=== PATIENT | female | born 1990 | race Caucasian/White ===

== ENCOUNTER 2016-09-27 12:37 | Outpatient (CLI) | payer OTHER | END 2016-09-27 12:38 | disposition home or self-care (01) | DX: M62.81 Muscle weakness (generalized) (principal) ==

== ENCOUNTER 2017-01-02 20:46 | Emergency (ER) | payer OTHER ==
[2017-01-02] MEDS ORDERED: FLUCONAZOLE 100 MG TABLET PO STA (21:08)
[2017-01-02] MEDS ORDERED: FLUCONAZOLE 100 MG TABLET ONE (21:09)
== END 2017-01-02 21:21 | disposition home or self-care (01) ==
DX: R21 Rash and other nonspecific skin eruption (principal); R23.8 Other skin changes; F17.200 Nicotine dependence, unspecified, uncomplicated
CPT/HCPCS: 86694; 86695; 86696; 99283; A9270

== ENCOUNTER 2017-01-27 05:09 | Emergency (ER) | payer OTHER ==
[2017-01-27 05:15] VITALS: BP 151/91
[2017-01-27] MEDS ORDERED: IBUPROFEN 600 MG TABLET PO STA (05:18)
[2017-01-27] MEDS ORDERED: AMOX/CLAV 875 MG/125 MG TABLET PO STA (05:18)
[2017-01-27] MEDS ORDERED: AMOX/CLAV 875 MG/125 MG TABLET PO ONE (05:20)
[2017-01-27] MEDS ORDERED: IBUPROFEN 600 MG TABLET PO ONE (05:21)
--- NOTE | 2017-01-27 05:21 | ED Physician Documentation ---
PD HPI HEENT - Stated complaint Stated Complaint: R EAR PX - Chief complaint Chief Complaint: Heent - History obtained from History obtained from: Patient - History of Present Illness Timing - onset: Yesterday Timing - details: Gradual onset, Still present Location: Right ear, Left ear Associated symptoms: No: Fever, Unable to swallow, Facial swelling Similar symptoms before: Work up / diagnostics, Treatment Recently seen: Not recently seen - Additional information Additional information: Patient is a 23 year old female presenting to the emergency department for ear pain. Patient states that it started yesterday in her left ear and today she woke up with worsening pain in her right ear. Patient states that she has had multiple ear infections as a child. She reports and allergy to amoxicillin but states that she has taken augmentin without any problem. Review of Systems Constitutional: denies: Fever, Chills Eyes: denies: Loss of vision, Decreased vision Ears: reports: Loss of hearing, Ear pain. 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 - Past Surgical 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 Past Surgical History: Yes HEENT: Tonsil/Adenoidectomy - Present Medications Home Medications: Ambulatory Orders Medication Instructions Recorded Confirmed Amox/Clav 875/125 [Augmentin] 1 each PO Q12H #14 tablet 01/27/17 Fluconazole [Diflucan] 150 mg PO ONCE #1 tablet 01/27/17 - Allergies Allergies/Adverse Reactions: Allergies Allergy/AdvReac Type Severity Reaction Status Date / Time amoxicillin Allergy Unknown Verified 01/27/17 05:12 miconazole nitrate * AdvReac Edema Verified 01/27/17 05:12 [From Monistat 3] skin cleanser combination AdvReac Edema Verified 01/27/17 05:12 no.17 * [From Monistat 3] "vaginal cream" AdvReac Edema Uncoded 01/27/17 05:12 - Social History Does the pt smoke?: Yes Smoking Status: Current every day smoker Does the pt drink ETOH?: No Does the pt have substance abuse?: No - Immunizations Immunizations are current?: Yes - POLST Patient has POLST: No PD ED PE NORMAL - General General: Alert and oriented X 3, Well developed/nourished - HEENT HEENT: Atraumatic, PERRL, Moist mucous membranes, Pharynx benign - Neck Neck: Supple, no meningeal sign - Cardiac Cardiac: RRR, No murmur - Respiratory Respiratory: No respiratory distress, Clear bilaterally - Abdomen Abdomen: Soft, Non distended - Derm Derm: Normal color, Warm and dry, No rash - Extremities Extremities: No deformity, Normal ROM s pain - Neuro Neuro: No motor deficit, No sensory deficit, Normal speech - Psych Psych: Normal mood, Normal affect PD ED PE EXPANDED - General General: Alert, In Pain - HEENT HEENT: R TM red, R TM retracted, R TM loss of landmarks, L TM red, L TM retracted, L TM loss of landmarks Results - Vitals Vitals: Vital Signs - 24 hr 01/27/17 05:13 Temperature 36.0 C L Heart Rate 82 Respiratory 18 Rate Blood Pressure 151/91 H O2 Saturation 98 Oxygen O2 Source Room air PD MEDICAL DECISION MAKING - ED course Complexity details: reviewed old records, re-evaluated patient, considered differential, d/w patient ED course: Patient was seen and examined at bedside. Patient's findings were consistent with otitis media. patient was treated with ibuprofen and augmentin. (patient had taken in the past without reaction). Patient required no further work up at this time and was stable for discharge with outpatient follow up. Departure - Departure Disposition: 01 Home, Self Care Clinical Impression: Otitis media Condition: Good Instructions: ED Otitis Media Acute Adult Follow-Up: primary,care provider [Other] Prescriptions: Amox/Clav 875/125 [Augmentin] 1 each PO Q12H #14 tablet Fluconazole [Diflucan] 150 mg PO ONCE #1 tablet Comments: Your symptoms today are being caused by an ear infection. You had your first dose of antbiotics today and you will need to take it for the next week. You can take motrin or tylenol as needed. FDA removed the prior ear drops since they were never fda approved but you might be able to find over the counter ear drops. You should follow up with your pmd if your symptoms don't improve over the next few days. You can return to the emergency department at any time for new, worsening or uncontrollable symptoms. Forms: Activity restrictions
== END 2017-01-27 05:38 | disposition home or self-care (01) ==
LOC: ED 05:09
DX: H66.93 Otitis media, unspecified, bilateral (principal); F17.200 Nicotine dependence, unspecified, uncomplicated
CPT/HCPCS: 99283; A9270

== ENCOUNTER → 2017-03-11 | Outpatient (CLI) | payer OTHER | LOC: LAB.R 09:03 | PROVIDERS: ATTEND Nurse Practitioner Obstetrics & Gynecology | DX: B37.3 Candidiasis of vulva and vagina (principal) | CPT/HCPCS: 87480; 87510; 87660 ==

== ENCOUNTER 2017-09-19 08:00 | Outpatient (CLI) | payer OTHER | END 2017-09-19 08:01 | disposition home or self-care (01) | LOC: LAB.R 08:00 | PROVIDERS: ATTEND Nurse Practitioner Obstetrics & Gynecology | DX: N76.0 Acute vaginitis (principal) | CPT/HCPCS: 87480; 87510; 87660 ==

== ENCOUNTER 2017-12-31 20:21 | Emergency (ER) | payer OTHER ==
[2017-12-31 20:25] VITALS: BP 132/77
[2017-12-31 20:40] LABS: BILIRUBIN,URINE NEGATIVE (NEGATIVE); GLUCOSE, URINE (UA) NEGATIVE (NEGATIVE); KETONES,URINE (UA) NEGATIVE (NEGATIVE); LEUKOCYTE ESTERASE, URINE LARGE (NEGATIVE); NITRITE,URINE NEGATIVE (NEGATIVE); OCCULT BLOOD,URINE TRACE-INTA (NEGATIVE); PROTEIN,URINE NEGATIVE (NEGATIVE); UROBILINOGEN,URINE 0.2 (NORMAL) E.U./dL (NORMAL)
[2017-12-31 20:41] LABS: CLARITY,URINE HAZY (CLEAR)
[2017-12-31] MEDS ORDERED: SULFAMETH/TRIMETH DS 800/160 MG TABLET PO STA (20:42)
[2017-12-31] MEDS ORDERED: PHENAZOPYRIDINE 100 MG TABLET PO STA (20:42)
[2017-12-31 20:43] LABS: HCG UR QUAL NEGATIVE
--- NOTE | 2017-12-31 20:45 | ED Physician Documentation ---
PD HPI FEMALE - Stated complaint Stated Complaint: PELVIC PAIN - Chief complaint Chief Complaint: Abd Pain - History obtained from History obtained from: Patient - History of Present Illness Timing - onset: How many days ago (4) Timing - details: Gradual onset, Still present Associated symptoms: Pelvic pain, Dysuria, Urinary frequency Similar symptoms before: Work up / diagnostics, Treatment Recently seen: Not recently seen - Additional information Additional information: Patient is a 27 year old female with no significant past medical history who is presenting to the emergency department for dysuria, and pelvic pain. patient states that it has been going on for the last couple of days. Review of Systems Ten Systems: 10 systems reviewed and negative Constitutional: denies: Fever, Chills GI: reports: Abdominal Pain : reports: Dysuria, Frequency. 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 - Past Surgical History Past Surgical History: Yes HEENT: Tonsil/Adenoidectomy - Present Medications Home Medications: Ambulatory Orders Medication Instructions Recorded Confirmed Amox/Clav 875/125 [Augmentin] 1 each PO Q12H #14 tablet 01/27/17 Fluconazole [Diflucan] 150 mg PO ONCE #1 tablet 01/27/17 Fluconazole [Diflucan] 150 mg PO ONCE #1 tablet 12/31/17 Phenazopyridine HCl [Pyridium] 200 mg PO TID PRN #6 tablet 12/31/17 Sulfamethox/Trimeth 800/160 1 each PO BID #10 tablet 12/31/17 [Bactrim Ds 800/160] - Allergies Allergies/Adverse Reactions: Allergies Allergy/AdvReac Type Severity Reaction Status Date / Time amoxicillin Allergy Unknown Verified 12/31/17 20:25 miconazole nitrate * AdvReac Edema Verified 12/31/17 20:25 [From Monistat 3] skin cleanser combination AdvReac Edema Verified 12/31/17 20:25 no.17 * [From Monistat 3] "vaginal cream" AdvReac Edema Uncoded 12/31/17 20:25 - Social History Does the pt smoke?: Yes Smoking Status: Current every day smoker Does the pt drink ETOH?: No Does the pt have substance abuse?: No - Immunizations Immunizations are current?: Yes - POLST Patient has POLST: No PD ED PE NORMAL - Vitals Vital signs reviewed: Yes - General General: Alert and oriented X 3, No acute distress - HEENT HEENT: Atraumatic - Cardiac Cardiac: RRR - Respiratory Respiratory: No respiratory distress - Derm Derm: Normal color, No rash - Extremities Extremities: No deformity - Neuro Neuro: Alert and oriented X 3 - Psych Psych: Normal mood Results - Vitals Vitals: Vital Signs - 24 hr 12/31/17 20:23 Temperature 36.0 C L Heart Rate 102 H Respiratory 16 Rate Blood Pressure 132/77 H O2 Saturation 100 Oxygen O2 Source Room air - Labs Labs: Laboratory Tests 12/31/17 12/31/17 20:35 20:35 Urine Color LT. YELLOW Urine Clarity HAZY Urine pH 7.0 Ur Specific [place] 1.010 1.010 Urine Protein NEGATIVE Urine Glucose (UA) NEGATIVE Urine Ketones NEGATIVE Urine Occult Blood TRACE-INTA Urine Nitrite NEGATIVE Urine Bilirubin NEGATIVE Urine Urobilinogen 0.2 (NORMAL) Ur Leukocyte Esterase LARGE H Urine RBC 6-10 H Urine WBC >25 H Ur Squamous Epith Cells MANY Squamous H Urine Bacteria Few Ur Microscopic Review INDICATED Urine Culture Comments NOT INDICATED Urine HCG, Qual NEGATIVE PD MEDICAL DECISION MAKING - ED course Complexity details: reviewed old records, reviewed results, re-evaluated patient , considered differential, d/w patient ED course: Patient was seen and examined at bedside. Patient's urine was collected and was consistent with a urinary tract infection. patient was treated with pyridium and bactrim. patient required no further work up and was stable for discharge with outpatient follow up. Departure - Departure Disposition: 01 Home, Self Care Clinical Impression: Urinary tract infection Condition: Good Instructions: ED UTI Cystitis Female Follow-Up: primary,care provider [Other] - Within 3 Days Prescriptions: Fluconazole [Diflucan] 150 mg PO ONCE #1 tablet Phenazopyridine HCl [Pyridium] 200 mg PO TID PRN #6 tablet PRN Reason: dysuria Sulfamethox/Trimeth 800/160 [Bactrim Ds 800/160] 1 each PO BID #10 tablet Comments: Your symptoms today are being caused by a urinary tract infection. You had your first dose of antibiotics today and will need to be on them for the next 5 days. You should stay well hydrated. You can take the pyridium, motrin or tylenol as needed for pain. YOu should follow up with your doctor if your symptoms don't improve. You may return to the emergency department at anytime for new, worsening or uncontrollable symptoms. Discharge Date/Time: 12/31/17 20:52
[2017-12-31 20:56] LABS: BACTERIA,URINE Few /HPF (None Seen); SQUAMOUS EPITHELIAL CELL,UR MANY Squamous (<= Few)
== END 2017-12-31 20:52 | disposition home or self-care (01) ==
LOC: ED 20:21
DX: N39.0 Urinary tract infection, site not specified (principal); F17.200 Nicotine dependence, unspecified, uncomplicated
CPT/HCPCS: 81001; 81025; 99283; A9270; 81003; 87086

== ENCOUNTER 2018-01-08 21:24 | Emergency (ER) | payer OTHER ==
[2018-01-08] MEDS ORDERED: diphenhydrAMINE INJ 50 MG/ML VIAL IVP STA (22:19)
[2018-01-08] MEDS ORDERED: DEXAMETHASONE 10 MG/ML VIAL IVP STA (22:19)
[2018-01-08 23:15] LABS: BILIRUBIN,URINE NEGATIVE (NEGATIVE); GLUCOSE, URINE (UA) NEGATIVE (NEGATIVE); KETONES,URINE (UA) NEGATIVE (NEGATIVE); LEUKOCYTE ESTERASE, URINE NEGATIVE (NEGATIVE); NITRITE,URINE NEGATIVE (NEGATIVE); OCCULT BLOOD,URINE NEGATIVE (NEGATIVE); PROTEIN,URINE NEGATIVE (NEGATIVE); UROBILINOGEN,URINE 0.2 (NORMAL) E.U./dL (NORMAL)
[2018-01-08 23:23] LABS: CLARITY,URINE CLEAR (CLEAR)
--- NOTE | 2018-01-09 01:16 | ED Physician Documentation ---
PD HPI HEENT - Stated complaint Stated Complaint: THROAT SWOLLEN - Chief complaint Chief Complaint: Heent - History obtained from History obtained from: Patient - History of Present Illness Timing - onset: How many hours ago (Onset less than one hour prior to arrival.) Timing - details: Gradual onset Location: Throat Worsens: Swalllowing Associated symptoms: Other (itching). No: Fever Similar symptoms before: No diagnosis (Similar symptoms in the past after taking antibiotics.) Recently seen: Emergency Dept (She was seen here one week ago and prescribed Bactrim for UTI.) - Additional information Additional information: The patient is a 27-year-old female who presents with thickness in her throat that started less than 1 hour prior to arrival. She finds it hard to swallow. She denies cough or shortness of breath. She has also experienced itching. She reports history of similar symptoms twice in the past, after taking antibiotics. One week ago she was diagnosed with urinary tract infection and was prescribed Bactrim DS. She took her last antibiotic pill this morning. She denies fever, headache, nausea or vomiting. 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 - Past Surgical History Past Surgical History: Yes HEENT: Tonsil/Adenoidectomy - Present Medications Home Medications: Ambulatory Orders Medication Instructions Recorded Confirmed Amox/Clav 875/125 [Augmentin] 1 each PO Q12H #14 tablet 01/27/17 Fluconazole [Diflucan] 150 mg PO ONCE #1 tablet 01/27/17 Fluconazole [Diflucan] 150 mg PO ONCE #1 tablet 12/31/17 Phenazopyridine HCl [Pyridium] 200 mg PO TID PRN #6 tablet 12/31/17 Sulfamethox/Trimeth 800/160 1 each PO BID #10 tablet 12/31/17 [Bactrim Ds 800/160] - Allergies Allergies/Adverse Reactions: Allergies Allergy/AdvReac Type Severity Reaction Status Date / Time amoxicillin Allergy Unknown Verified 01/08/18 21:36 miconazole nitrate * AdvReac Edema Verified 01/08/18 21:36 [From Monistat 3] skin cleanser combination AdvReac Edema Verified 01/08/18 21:36 no.17 * [From Monistat 3] "vaginal cream" AdvReac Edema Uncoded 01/08/18 21:36 - Social History Does the pt smoke?: Yes Smoking Status: Current every day smoker Does the pt drink ETOH?: No Does the pt have substance abuse?: No - Immunizations Immunizations are current?: Yes - POLST Patient has POLST: No PD ED PE NORMAL - Vitals Vital signs reviewed: Yes (Mild systolic hypertension initially.) - General General: Alert and oriented X 3 - HEENT HEENT: Atraumatic, EOMI, Moist mucous membranes, Pharynx benign - Neck Neck: Supple, no meningeal sign, No adenopathy, No JVD - Cardiac Cardiac: RRR, No murmur - Respiratory Respiratory: No respiratory distress, Clear bilaterally - Abdomen Abdomen: Soft, Non tender - Back Back: No CVA TTP - Derm Derm: Other (erythematous rash in glove distribution of both hands.) - Extremities Extremities: No edema, No calf tenderness / cord - Neuro Neuro: Alert and oriented X 3, No motor deficit, No sensory deficit Results - Vitals Vitals: Vital Signs - 24 hr 01/08/18 01/08/18 01/09/18 21:32 22:35 01:27 Temperature 36.0 C L Heart Rate 97 88 85 Respiratory 20 14 18 Rate Blood Pressure 136/75 H 131/86 H 129/72 O2 Saturation 100 100 96 Oxygen O2 Source Room air - Labs Labs: Laboratory Tests 01/08/18 22:05 Urine Color LT. YELLOW Urine Clarity CLEAR Urine pH 6.0 Ur Specific [place] <=1.005 Urine Protein NEGATIVE Urine Glucose (UA) NEGATIVE Urine Ketones NEGATIVE Urine Occult Blood NEGATIVE Urine Nitrite NEGATIVE Urine Bilirubin NEGATIVE Urine Urobilinogen 0.2 (NORMAL) Ur Leukocyte Esterase NEGATIVE Ur Microscopic Review NOT INDICATED Urine Culture Comments NOT INDICATED PD MEDICAL DECISION MAKING - ED course Complexity details: reviewed old records, reviewed results, re-evaluated patient , considered differential, d/w patient ED course: The patient's presentation is most consistent with an allergic reaction to sulfa drug, with symptoms of itching and thickness in her throat. Her clinical presentation does not suggest peritonsillar abscess or epiglottitis. Treatment in the emergency department included administration of Benadryl 50 mg IV and dexamethasone 10 mg IV. She was observed in the emergency department for several hours, and her symptoms gradually improved. Further discussion involving the rash on her hands reveals that she wears latex gloves at work, and may have a reaction to the latex gloves. I discussed with her the diagnosis, symptomatic treatment and outpatient follow- up, as well as potentially worrisome signs or symptoms that should prompt reevaluation in the emergency department. Departure - Departure Disposition: 01 Home, Self Care Clinical Impression: Drug allergy Condition: Stable Instructions: ED Drug React Allergic Follow-Up: [facility] [Provider Group] Comments: Avoid sulfa drugs, such as Bactrim. Take Benadryl, up to 50 mg every 6 hours if needed for recurrent allergic symptoms. Follow up with your primary physician within 1-2 weeks. Call to schedule an appointment. Return to the emergency department if you develop increasing difficulty swallowing, shortness of breath, or otherwise worsening symptoms. Discharge Date/Time: 01/09/18 01:28
[2018-01-09 01:28] VITALS: BP 129/72
== END 2018-01-09 01:28 | disposition home or self-care (01) ==
LOC: ED 21:24
DX: R13.10 Dysphagia, unspecified (principal); L29.9 Pruritus, unspecified; R09.89 Other specified symptoms and signs involving the circulatory and respiratory systems; T37.0X5A Adverse effect of sulfonamides, initial encounter; F17.200 Nicotine dependence, unspecified, uncomplicated; R21 Rash and other nonspecific skin eruption
CPT/HCPCS: 81003; 96374; 96375; 99283; 99284; J1200; 81001; 87086

== ENCOUNTER 2019-05-04 08:00 | Outpatient (CLI) | payer OTHER ==
[2019-05-04 21:36] LABS: CANDIDA GROUP DNA POSITIVE (NEGATIVE); CANDIDA KRUSEI DNA NEGATIVE (NEGATIVE); TRICHOMONAS VAGINALIS DNA NEGATIVE (NEGATIVE)
[2019-05-04 23:10] LABS: TRICHOMONAS VAGINALIS DNA NEGATIVE (NEGATIVE)
== END 2019-05-04 23:59 | disposition home or self-care (01) ==
LOC: LAB.R 08:00
PROVIDERS: ATTEND Obstetrics & Gynecology
DX: Z20.2 Contact with and (suspected) exposure to infections with a predominantly sexual mode of transmission (principal); N76.0 Acute vaginitis
CPT/HCPCS: 81599; 87255; 87491; 87591; 87661; 87801

== ENCOUNTER 2019-12-25 13:33 | Outpatient (CLI) | payer BC ==
[2019-12-25 13:46] LABS: HGB - HEMOGLOBIN 12.4 g/dL (12.0-16.0); MEAN CORPUSCULAR HEMOGLOBIN 31.6 pg (27.0-31.0); MEAN CORPUSCULAR HGB CONC 32.6 g/dL (32.0-36.0); MEAN CORPUSCULAR VOLUME 96.7 fL (81.0-99.0); MEAN PLATELET VOLUME 8.8 fL (7.9-10.8); RED BLOOD COUNT 3.93 10^6/uL (4.20-5.40); RED CELL DISTRIBUTION WIDTH 12.3 % (12.0-15.0); WHITE BLOOD COUNT 6.6 x10^3/uL (4.8-10.8)
== END 2019-12-25 13:34 | disposition home or self-care (01) ==
LOC: LAB 13:33
PROVIDERS: ATTEND Internal Medicine
DX: L65.9 Nonscarring hair loss, unspecified (principal)
CPT/HCPCS: 36415; 84443; 85027

== ENCOUNTER 2020-01-07 08:00 | Outpatient (CLI) | payer BC ==
[2020-01-07 17:53] LABS: BASOPHILS % (AUTO) 0.5 %; EOSINOPHILS # (AUTO) 0.2 10^3/uL (0.0-0.7); LYMPHOCYTES # (AUTO) 2.4 10^3/uL (1.5-3.5); MEAN CORPUSCULAR HEMOGLOBIN 31.6 pg (27.0-31.0); MEAN CORPUSCULAR HGB CONC 32.6 g/dL (32.0-36.0); MEAN CORPUSCULAR VOLUME 97.1 fL (81.0-99.0); MEAN PLATELET VOLUME 9.2 fL (7.9-10.8); MONOCYTES # (AUTO) 0.7 10^3/uL (0.0-1.0); MONOCYTES % (AUTO) 9.8 %; NEUTROPHILS # (AUTO) 4.1 10^3/uL (1.5-6.6); NEUTROPHILS % (AUTO) 55.4 %; PLT - PLATELET COUNT 341 10^3/uL (130-450); RED BLOOD COUNT 4.11 10^6/uL (4.20-5.40); WHITE BLOOD COUNT 7.4 x10^3/uL (4.8-10.8)
[2020-01-07 18:21] LABS: THYROID STIMULATING HORMONE 1.08 uIU/mL (0.34-5.60)
[2020-01-07 18:23] LABS: FREE T3 3.41 pg/mL (2.5-3.9); FREE T4 (FREE THYROXINE) 0.9 ng/dL (0.58-1.64)
[2020-01-07 18:47] LABS: ALBUMIN 4.5 g/dL (3.2-5.5); ALBUMIN/GLOBULIN RATIO 1.7 (1.0-2.2); ALKALINE PHOSPHATASE 70 IU/L (42-121); ALT ALANINE AMINOTRANSFERASE 17 IU/L (10-60); AST ASPARTATE AMINOTRANSFERASE 22 IU/L (10-42); BILIRUBIN,TOTAL 0.5 mg/dL (0.2-1.0); BUN - BLOOD UREA NITROGEN 21 mg/dL (6-20); CALCIUM 8.9 mg/dL (8.5-10.3); CARBON DIOXIDE - CO2 29 mmol/L (21-32); CHLORIDE 103 mmol/L (101-111); CREATININE 0.7 mg/dL (0.4-1.0); GLUCOSE 69 mg/dL (70-100); SODIUM 138 mmol/L (135-145); TOTAL PROTEIN 7.1 g/dL (6.7-8.2)
[2020-01-07 18:59] LABS: CRP - C-REACTIVE PROTEIN < 1.0 mg/dL (0-1.0)
== END 2020-01-07 23:59 | disposition home or self-care (01) ==
LOC: LAB.WCP 08:00
PROVIDERS: ATTEND Family Medicine
DX: L65.9 Nonscarring hair loss, unspecified (principal)
CPT/HCPCS: 36415; 80053; 82306; 84439; 84443; 84481; 85025; 85651; 86140

== ENCOUNTER 2020-03-14 11:30 | Outpatient (CLI) | payer BC ==
[2020-03-14 22:18] LABS: CANDIDA GROUP DNA POSITIVE (NEGATIVE); CANDIDA KRUSEI DNA NEGATIVE (NEGATIVE); TRICHOMONAS VAGINALIS DNA NEGATIVE (NEGATIVE)
[2020-03-14 23:40] LABS: TRICHOMONAS VAGINALIS DNA NEGATIVE (NEGATIVE)
== END 2020-03-14 23:59 | disposition home or self-care (01) ==
LOC: LAB.R 11:30
PROVIDERS: ATTEND Obstetrics & Gynecology
DX: N76.0 Acute vaginitis (principal)
CPT/HCPCS: 87491; 87591; 87661; 87801

== ENCOUNTER 2020-06-18 11:40 | Outpatient (CLI) | payer BC | END 2020-06-18 11:41 | disposition home or self-care (01) | LOC: COV 11:40 | PROVIDERS: ATTEND Family Medicine | DX: R05 Cough (principal); Z20.828 Contact with and (suspected) exposure to other viral communicable diseases; R09.81 Nasal congestion; R53.83 Other fatigue; M79.10 Myalgia, unspecified site; R43.8 Other disturbances of smell and taste ==

== ENCOUNTER 2020-07-15 12:12 | Outpatient (CLI) | payer BC ==
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
== END 2020-07-15 12:13 | disposition home or self-care (01) ==
LOC: SC 12:12
PROVIDERS: ATTEND Internal Medicine Pulmonary Disease
DX: G47.10 Hypersomnia, unspecified (principal); R06.81 Apnea, not elsewhere classified; G47.8 Other sleep disorders; R51.9 Headache, unspecified; R41.89 Other symptoms and signs involving cognitive functions and awareness; G47.21 Circadian rhythm sleep disorder, delayed sleep phase type; R06.83 Snoring; E66.9 Obesity, unspecified; Z68.32 Body mass index [BMI] 32.0-32.9, adult
CPT/HCPCS: 99203; 99212

== ENCOUNTER 2020-09-17 15:58 | Outpatient (CLI) | payer BC | END 2020-09-17 15:59 | disposition home or self-care (01) | LOC: SC 15:58 | PROVIDERS: ATTEND Internal Medicine Pulmonary Disease | DX: G47.10 Hypersomnia, unspecified (principal); E66.01 Morbid (severe) obesity due to excess calories; Z68.32 Body mass index [BMI] 32.0-32.9, adult; R06.81 Apnea, not elsewhere classified; R06.83 Snoring | CPT/HCPCS: 95806 ==

== ENCOUNTER 2020-09-24 12:55 | Outpatient (CLI) | payer BC ==
--- NOTE | 2020-09-24 13:18 | SLEEP CARE CONSULTATION ---
Information from patient questionnaire entered by Ilda Wing. I have reviewed and concur with the information entered by Ilda Wing. This document represents the service I personally performed and the decisions made by , Niesha Henning ARNP. History of Present Illness Service Date and Time: 09/24/2020 1255 Initial [place] Sleepiness Scale score: 23 (in 2019) Current [place] Sleepiness Scale score: 19 Additional HPI information: RICKIE KYLE returns for follow up and results of the recently performed home sleep study. The patient was informed of the following findings: no significant sleep disordered breathing with an average AHI 2.0 and dulce oxygen saturation of 92%. I explained the pathophysiology behind obstructive sleep apnea. Patient does not have sleep apnea and was advised how weight gain could increase the risk of developing sleep apnea in the future. I strongly encouraged the patient to lose weight. Patient has moderate to loud snoring. Snoring can be reduced by weight loss. Weight loss is best achieved with diet consult. Patient instructed to contact PCP for referral. Snoring can also be treated with an oral appliance from a dentist. Advised to check insurance coverage. In addition, an ENT evaluation can be do to see if other treatment is indicated. Patient counseled not drink alcohol less than 4 hours before bedtime as it can increase snoring and apnea. Patient was cautioned about risks of drowsy driving until sleepiness symptoms resolve. Sleep Study - Results Type of Sleep Study: Home sleep study Prior sleep studies: No Polysomnography/Home Sleep Study results: Physician Impression: The quality of the study is good. The length of the study is adequate (> 240 minutes). Please also see the tabulated and graphic data. 1. No significant sleep disordered breathing, with an AHI of 2.0/hr and dulce SaO2 of 92%. During the study, the patient had 8 apneas (8 obstructive, 0 central, 0 mixed) and 2 hypopneas. The longest episode lasted 26.5 seconds. The few respiratory events occurred independently of sleep stage and body position (supine AHI was 2.0 and non-supine, 1.95). Allergies and Home Medications Drug allergies reviewed: Yes (amoxicillin, miconazole, monostat) Home medication list reviewed: Yes (B12) Review of Systems Review of systems same as previous: No (hair falling out) Physical Exam Heart Rate: 94 O2 Saturation: 96 Height: 5 ft 6 in Weight: 202 lb Body Mass Index: 32.5 BMI Classification: Obese Impression and Plan 1. Snoring but no significant sleep disordered breathing. Patient advised that often weight loss will reduce snoring as well as apnea risk. An oral appliance can also be used for snoring. This would require a dental consultation. Patient cautioned not to use other online appliances as can cause bite issues. A list of accredited dentists in area and one local dentist who makes oral appliances given. Patient is advised to check if insurance will cover. An ENT consult can also be helpful to determine if any other treatment is an option. 2. 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 Patient was advised to get up at the same time every morning consistently and can do this in hour increments until at desired wake up time. I explained the homestatic sleep drive and how maintaining a regular wake time will allow the patient to be tired enough to sleep 15-16 hours later. By waking at the same time, the patient will also feel more alert. This can also be assisted by exposure to bright light for a minimum of 15 minutes a day upon waking. Additionally too much time spent in bed can cause more sleep disruption as most people only need 7-9 hours of sleep. Thus patient advised to restrict time in bed to 7-8 hours. Naps are to be avoided unless overcome by sleepiness. Then naps are to be restricted to one hour and before 3 pm so as not to interfere with nighttime sleep. AAS pamphlet Coping with shift work was reviewed and given to patient. She voiced understanding. * Attempt to lose weight * Get up at same time each morning * Avoid alcohol consumption near bedtime * The patient is cautioned about driving until sleepiness is completely resolved. * Return as needed. Counseling Topics: Weight loss health impact Visit Type: In Office Time Spent with Patient (minutes): 20 Provider Statement: I spent 100% of the Face to Face Visit with the patient with greater than 50% spent counseling the patient and coordination of care.
== END 2020-09-24 12:56 | disposition home or self-care (01) ==
LOC: SC 12:55
PROVIDERS: ATTEND Nurse Practitioner Family
DX: R06.83 Snoring (principal); G47.21 Circadian rhythm sleep disorder, delayed sleep phase type; E66.9 Obesity, unspecified; Z68.32 Body mass index [BMI] 32.0-32.9, adult
CPT/HCPCS: 99212; 99213

== ENCOUNTER 2020-11-24 21:17 | Outpatient (CLI) | payer BC ==
--- NOTE | 2020-11-25 11:54 | Ultrasound Report ---
PROCEDURE: OB First Trimester w/TV INDICATIONS: TEST POSITIVE OUTSIDE/PRIOR DATING DATA: Last menstrual period (LMP): 08/12/2020. LMP-based estimated date of delivery (RODERICK): 05/19/2021. First dating scan (date and location): 11/24/2020. Estimated date of delivery (RODERICK) from first dating scan: Not applicable. TECHNIQUE: Real-time scanning was performed of the fetus and maternal pelvic organs, with image documentation. Endovaginal scanning was also performed to better visualize the fetus and maternal ovaries. COMPARISON: None FINDINGS: Embryo: Intrauterine gestational sac is present measuring 3.2 cm corresponding to 8 weeks 3 days. G estational sac is irregular. Cystic appearance is present in the placenta. There is no clearly iden tified pole. A questionable focus of echogenicity is noted within the gestational sac is prese nt, measuring 0.5 cm. No heart tones are present. There is appearance of subchorionic hemorrha ge measuring 3.5 x 2.4 x 2.9 cm. Measurement variability in dating: +/- 4 weeks by LMP, +/- 7 days by mean sac diameter (use before 6 weeks gestation if crown-rump length not able to be measured), +/- 5 days by crown-rump length (6-12 weeks gestation). Maternal organs: Ovaries demonstrate a right ovarian cyst.. IMPRESSION: 1.Intrauterine gestational sac appearing irregular. No definitive pole is identified as describ ed above. While this is suggestive of blighted ovum/failed , recommend correlation to beta h CG levels and short interval imaging follow up if indicated. 2. Cystic appearance of the placenta. It is noted that this can be seen with molar , althoug h placenta in failed pregnancies can also have a similar appearance. Again, recommend correlation to beta hCG levels to exclude presence of molar . Reviewed by: Leona Cornejo MD on 11/25/2020 11:53 AM PDT Approved by: Leona Cornejo MD on 11/25/2020 11:53 AM PDT Station ID: [id number]
== END 2020-11-24 21:18 | disposition home or self-care (01) ==
LOC: DI 21:17
PROVIDERS: ATTEND Nurse Practitioner Obstetrics & Gynecology
DX: Z32.01 Encounter for pregnancy test, result positive (principal)

== ENCOUNTER 2020-11-25 08:00 | Outpatient (CLI) | payer BC | END 2020-11-25 23:59 | disposition home or self-care (01) | LOC: LAB.WCP 08:00 | PROVIDERS: ATTEND Nurse Practitioner Obstetrics & Gynecology | DX: O20.0 Threatened abortion (principal) | CPT/HCPCS: 36415; 84702 ==

== ENCOUNTER 2020-11-26 12:35 | Outpatient (CLI) | payer BC | END 2020-11-26 12:36 | disposition home or self-care (01) | LOC: LAB 12:35 | PROVIDERS: ATTEND Nurse Practitioner Obstetrics & Gynecology | DX: O20.0 Threatened abortion (principal) | CPT/HCPCS: 36415; 84702 ==

== ENCOUNTER 2020-12-02 15:20 | Outpatient (CLI) | payer BC | END 2020-12-02 15:21 | disposition home or self-care (01) | LOC: LAB 15:20 | PROVIDERS: ATTEND Obstetrics & Gynecology | DX: O20.0 Threatened abortion (principal) | CPT/HCPCS: 36415; 84702 ==

== ENCOUNTER 2020-12-08 16:05 | Outpatient (CLI) | payer BC | END 2020-12-08 16:06 | disposition home or self-care (01) | LOC: LAB 16:05 | PROVIDERS: ATTEND Obstetrics & Gynecology | DX: O02.1 Missed abortion (principal) | CPT/HCPCS: 36415; 84702 ==

== ENCOUNTER 2020-12-15 14:09 | Outpatient (CLI) | payer BC | END 2020-12-15 14:10 | disposition home or self-care (01) | LOC: LAB 14:09 | PROVIDERS: ATTEND Obstetrics & Gynecology | DX: O02.1 Missed abortion (principal) | CPT/HCPCS: 36415; 84702 ==

== ENCOUNTER 2020-12-22 12:31 | Outpatient (CLI) | payer BC | END 2020-12-22 12:32 | disposition home or self-care (01) | LOC: LAB 12:31 | PROVIDERS: ATTEND Obstetrics & Gynecology | DX: O02.1 Missed abortion (principal) | CPT/HCPCS: 36415; 84702 ==

== ENCOUNTER 2021-11-03 19:40 | Emergency (ER) | payer BC, OTHER ==
--- NOTE | 2021-11-03 20:20 | XRAY Report ---
PROCEDURE: Finger(s) LT INDICATIONS: Trauma TECHNIQUE: AP hand, 2 views of the first finger(s) acquired. COMPARISON: None FINDINGS: Bones: No fractures or dislocations. No suspicious bony lesions. Soft tissues: No suspicious soft tissue calcifications. IMPRESSION: No acute fracture. No osseous lesion. If symptoms and/or clinical suspicion for pathology continue, f urther assessment with repeat plain films, or advanced imaging (e.g., CT, MRI, or bone scan) is recom mended for further assessment. Reviewed by: Jerome Guerra MD on 11/03/2021 8:19 PM PST Approved by: Jeorme Guerra MD on 11/03/2021 8:19 PM [facility] Station ID: [id number]
[2021-11-03] MEDS ORDERED: HYDROcod/ACETAM 5/325 MG TABLET PO STA (21:43)
--- NOTE | 2021-11-03 22:12 | ED Physician Documentation ---
PD HPI UPPER EXT INJURY - Stated complaint Stated Complaint: LT THUMB PX - Chief complaint Chief Complaint: Laceration - History obtained from History obtained from: Patient - History of Present Illness Location: Left, Finger (thumb) Type of injury: Laceration Where injury occurred: Home Timing - onset: How many hours ago (1) Timing - duration: Hours (1) Timing - details: Abrupt onset Pain level max: 5 Pain level now: 4 Improved by: Rest Worsened by: Moving, Palpating Associated symptoms: No: Weakness, Numbness, Tingling, Swelling, Discolored Contributing factors: No: Anticoagulated, Prior ortho surgery Recently seen: Not recently seen - Additonal information Additional information: 31-year-old female is right-handed, she states she was using an ax when she excellently cut her left thumb. Occurred about 1 hour prior to arrival. Better with pressure, worse with palpation and movement. Tetanus is up-to-date. 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 : Chronic bladder infection - Past Surgical History Past Surgical History: Yes HEENT: Tonsil/Adenoidectomy - Present Medications Home Medications: Ambulatory Orders Medication Instructions Recorded Confirmed Amox/Clav 875/125 [Augmentin] 1 each PO Q12H #14 tablet 01/27/17 Fluconazole [Diflucan] 150 mg PO ONCE #1 tablet 01/27/17 Fluconazole [Diflucan] 150 mg PO ONCE #1 tablet 12/31/17 Phenazopyridine HCl [Pyridium] 200 mg PO TID PRN #6 tablet 12/31/17 Sulfamethox/Trimeth 800/160 1 each PO BID #10 tablet 12/31/17 [Bactrim Ds 800/160] - Allergies Allergies/Adverse Reactions: Allergies Allergy/AdvReac Type Severity Reaction Status Date / Time amoxicillin Allergy Unknown Verified 11/03/21 19:46 miconazole nitrate * AdvReac Edema Verified 11/03/21 19:46 [From Monistat 3] skin cleanser combination AdvReac Edema Verified 11/03/21 19:46 no.17 * [From Monistat 3] "vaginal cream" AdvReac Edema Uncoded 11/03/21 19:46 - Social History Does the pt smoke?: Yes Smoking Status: Current every day smoker Does the pt drink ETOH?: No Does the pt have substance abuse?: No - Immunizations Immunizations are current?: Yes - POLST Patient has POLST: No PD ED PE NORMAL - Vitals Vital signs reviewed: Yes - General General: Alert and oriented X 3, No acute distress - Neck Neck: Supple, no meningeal sign - Cardiac Cardiac: RRR - Respiratory Respiratory: No respiratory distress, Clear bilaterally - Abdomen Abdomen: Soft, Non tender, Non distended - Derm Derm: Warm and dry - Neuro Neuro: Alert and oriented X 3 PD ED PE EXPANDED - Extremities LUIS MANUEL UE/Hands Visual: 1 - laceration (0.5cm skin avulsion, NVI.) Results - Vitals Vitals: Vital Signs - 24 hr 11/03/21 11/03/21 19:43 22:27 Temperature 36.2 C L 36.3 C L Heart Rate 108 H 89 Respiratory 20 18 Rate Blood Pressure 145/87 H 138/81 H O2 Saturation 100 100 Oxygen O2 Source Room air PD MEDICAL DECISION MAKING - ED course Complexity details: reviewed results, re-evaluated patient, considered differential, d/w patient ED course: Skin avulsion to the left thumb. Wound was cleansed and bandaged. Dermabond applied. Patient tolerated well. Tetanus up-to-date. Warnings of infection and instructions on wound care given at bedside. Also counseled on how to minimize scarring. Patient counseled regarding signs and symptoms for which I believe and urgent re-evaluation would be necessary. Patient with good unders tanding of and agreement to plan and is comfortable going home at this time This document was made in part using voice recognition software. While efforts are made to proofread this document, sound alike and grammatical errors may occur. Departure - Departure Disposition: 01 Home, Self Care Clinical Impression: Avulsion of skin of thumb Qualifiers: Encounter type: initial encounter Laterality: left Qualified Code(s): S61.002A - Unspecified open wound of left thumb without damage to nail, initial encounter Condition: Good Instructions: ED Avulsion Dermal Follow-Up: your,doctor as needed [Other] Comments: Keep the wound clean. The glue will fall off on its own. Return if you notice redness, swelling or drainage from the wound. Discharge Date/Time: 11/03/21 22:27
[2021-11-03 22:31] VITALS: BP 138/81
== END 2021-11-03 22:27 | disposition home or self-care (01) ==
LOC: ED 19:40
DX: S61.002A Unspecified open wound of left thumb without damage to nail, initial encounter (principal); W27.0XXA Contact with workbench tool, initial encounter; Y92.009 Unspecified place in unspecified non-institutional (private) residence as the place of occurrence of the external cause; F17.200 Nicotine dependence, unspecified, uncomplicated
CPT/HCPCS: 12001; 73140; 99283; A9270

== ENCOUNTER 2023-07-01 21:35 | Emergency (ER) | payer MEDICAID, OTHER ==
[2023-07-01 21:54] VITALS: BP 150/99; O2SAT 100
--- NOTE | 2023-07-01 22:53 | ED Physician Documentation ---
History of Present Illness - Stated complaint Stated Complaint: LT HAND FINGER INJ - Chief complaint Chief Complaint: Ext Problem - History obtained from History obtained from: Patient - Additonal information Additional information: 33-year-old woman with history of carpal tunnel syndrome presents with left third finger injury yesterday after smashing it between 2 rocks. Patient states that she has had intermittent numbness and tingling but it has now resolved. Also with some redness to the finger where it was injured. 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 : Chronic bladder infection - Past Surgical History Past Surgical History: Yes HEENT: Tonsil/Adenoidectomy - Present Medications Home Medications: Ambulatory Orders Medication Instructions Recorded Confirmed Amox/Clav 875/125 [Augmentin] 1 each PO Q12H #14 tablet 01/27/17 Fluconazole [Diflucan] 150 mg PO ONCE #1 tablet 01/27/17 Fluconazole [Diflucan] 150 mg PO ONCE #1 tablet 12/31/17 Phenazopyridine HCl [Pyridium] 200 mg PO TID PRN #6 tablet 12/31/17 Sulfamethox/Trimeth 800/160 1 each PO BID #10 tablet 12/31/17 [Bactrim Ds 800/160] - Allergies Allergies/Adverse Reactions: Allergies Allergy/AdvReac Type Severity Reaction Status Date / Time amoxicillin Allergy Unknown Verified 07/01/23 21:47 miconazole nitrate * AdvReac Edema Verified 07/01/23 21:47 [From Monistat 3] skin cleanser combination AdvReac Edema Verified 07/01/23 21:47 no.17 * [From Monistat 3] "vaginal cream" AdvReac Edema Uncoded 07/01/23 21:47 - Social History Does the pt smoke?: Yes Smoking Status: Current every day smoker Does the pt drink ETOH?: No Does the pt have substance abuse?: No - Immunizations Immunizations are current?: Yes - POLST Patient has POLST: No PD ED PE NORMAL - Vitals Vital signs reviewed: Yes - General General: Alert and oriented X 3, No acute distress, Well developed/nourished - HEENT HEENT: Atraumatic, PERRL, EOMI - Derm Derm: Normal color, Warm and dry - Extremities Extremities: No deformity, Normal ROM s pain, Other (2+ radial pulse left upper extremity. CSM intact. Distal left third finger with some erythema and ten derness to palpation to distal aspect. Normal sensation) Results - Vitals Vitals: Vital Signs - 24 hr 07/01/23 21:43 Temperature 37.0 C Heart Rate 87 Respiratory 18 Rate Blood Pressure 150/99 H O2 Saturation 100 Oxygen O2 Source Room air PD Medical Decision Making - ED course ED course: 33-year-old woman with history of carpal tunnel presents with numbness to the left third finger after smashing it yesterday. Numbness seems to have resolved at this point and her exam is normal with the exception of some tenderness along the distal aspect of the finger. X-ray shows minimally displaced comminuted fracture of distal L third finger. splint applied. Symptomatic care discussed and return precautions given. Departure - Departure Disposition: 01 Home, Self Care Clinical Impression: Pain in extremity, Finger fracture, left Condition: Good Instructions: ED RICE, ED Fx Finger Closed Comments: You were seen in the emergency department for Evaluation of smashed finger. Your x-ray showed a small break in the tip of the finger. It will not need surgery and should heal within 6 weeks. Please follow-up with your primary care provider and return to the emergency dep artment if you have any new or worsening symptoms or other concerns. Forms: PCP List
--- NOTE | 2023-07-02 00:59 | XRAY Report ---
PROCEDURE: Finger(s) LT INDICATIONS: Trauma TECHNIQUE: AP hand, 2 views of the left third finger(s) acquired. COMPARISON: None. FINDINGS: Bones: There is a slightly comminuted, mildly displaced fracture of the third distal phalanx tuft. T here is no extension to the DIP articular surface. No other fractures are identified. Soft tissues: No radiodense foreign bodies in the soft tissue. No suspicious calcifications. IMPRESSION: 1. Third distal phalanx tuft fracture. If there is disruption of the nailbed, this should be treated as an open fracture. 2. No foreign body in the soft tissue. Reviewed by: Elly Garcia MD on 07/02/2023 12:58 AM PDT Approved by: Elly Garcia MD on 07/02/2023 12:58 AM PDT Station ID: [id number]
== END 2023-07-01 23:39 | disposition home or self-care (01) ==
LOC: ED 21:35
DX: S62.633A Displaced fracture of distal phalanx of left middle finger, initial encounter for closed fracture (principal); W23.1XXA Caught, crushed, jammed, or pinched between stationary objects, initial encounter; F17.200 Nicotine dependence, unspecified, uncomplicated
CPT/HCPCS: 99283

== ENCOUNTER 2023-10-15 01:12 | Emergency (ER) | payer MEDICAID ==
--- NOTE | 2023-10-15 02:05 | ED Physician Documentation ---
PD HPI MHE - Stated complaint Stated Complaint: SI - Chief complaint Chief Complaint: MHE - History obtained from History obtained from: Patient - Additional information Additional information: HPI from patient as well as patient's friend who is in the ED at the patient's bedside. Patient presents at the urging of her friend after having attempted suicide this morning. The patient says she sat in her car while it was running in a close garage for 4 hours this morning with the intent of killing herself. Patient says she fell asleep in the car during those 4 hours but, upon awakening after approx imately 4 hours, she contacted her friend who then came to her house to help her. Patient has had waxing and waning dizziness, generalized headache, nausea without vomiting. The patient says she has a long history of methamphetamine use, was recently sober but relapsed a few days ago. Review of Systems Eyes: denies: Loss of vision, Decreased vision Cardiac: reports: Reviewed and negative Respiratory: reports: Reviewed and negative GI: reports: Nausea. denies: Abdominal Pain, Vomiting : denies: Now EGA Musculoskeletal: reports: Reviewed and negative Neurologic: reports: Headache. 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 : Chronic bladder infection - Past Surgical History Past Surgical History: Yes HEENT: Tonsil/Adenoidectomy - Present Medications Home Medications: Ambulatory Orders Medication Instructions Recorded Confirmed No Known Home Medications 10/15/23 10/15/23 - Allergies Allergies/Adverse Reactions: Allergies Allergy/AdvReac Type Severity Reaction Status Date / Time amoxicillin Allergy Unknown Verified 10/15/23 01:42 miconazole nitrate * AdvReac Edema Verified 10/15/23 01:42 [From Monistat 3] skin cleanser combination AdvReac Edema Verified 10/15/23 01:42 no.17 * [From Monistat 3] "vaginal cream" AdvReac Edema Uncoded 10/15/23 01:42 - Social History Does the pt smoke?: Yes Smoking Status: Current every day smoker Does the pt drink ETOH?: No Does the pt have substance abuse?: No - Immunizations Immunizations are current?: Yes - POLST Patient has POLST: No PD ED PE NORMAL - Vitals Vital signs reviewed: Yes - General General: Alert and oriented X 3, No acute distress, Well developed/nourished - HEENT HEENT: PERRL, EOMI - Neck Neck: Supple, no meningeal sign - Cardiac Cardiac: RRR, No murmur, No gallop, No rub - Respiratory Respiratory: No respiratory distress, Clear bilaterally - Abdomen Abdomen: Soft, Non tender - Neuro Neuro: Alert and oriented X 3, graphic engineer 2-12 intact, No motor deficit, No sensory deficit, Normal speech Eye Opening: Spontaneous Motor: Obeys Commands Verbal: Oriented GCS Score: 15 PD ED PE EXPANDED - Extremities Extremities: Other (clubbing of fingers) - Psych Psych: Other (indifferent, irritable at times during H+P but cooperative) Results - Vitals Vitals: Vital Signs - 24 hr 10/15/23 09:29 Heart Rate 90 Respiratory 16 Rate Blood Pressure 151/86 H O2 Saturation 99 Oxygen O2 Source Room air - Labs Labs: Laboratory Tests 10/15/23 10/15/23 10/15/23 02:00 02:00 02:25 WBC 9.6 RBC 4.27 Hgb 13.7 Hct 42.4 MCV 99.3 H MCH 32.1 H MCHC 32.3 RDW 12.3 Plt Count 342 MPV 8.6 Neut # (Auto) 5.8 Lymph # (Auto) 2.9 Morrison # (Auto) 0.8 Eos # (Auto) 0.1 Baso # (Auto) 0.0 Absolute Nucleated RBC 0.00 Nucleated RBC % 0.0 VBG Total Hgb 14.8 VBG Oxyhemoglobin 63 L VBG Carboxyhemoglobin 3.9 H VBG Methemoglobin 0.4 Sodium 137 Potassium 4.4 Chloride 105 Carbon Dioxide 27 Anion Gap 5.0 L BUN 23 H Creatinine 0.7 Estimated GFR (MDRD) 96 Glucose 108 H Calcium 9.4 Total Bilirubin 0.3 AST 14 ALT 16 Alkaline Phosphatase 73 Total Protein 6.9 Albumin 4.4 Globulin 2.5 Albumin/Globulin Ratio 1.8 Lipase 37 TSH 1.38 Urine Color Urine Clarity Urine pH Ur Specific [place] Urine Protein Urine Glucose (UA) Urine Ketones Urine Occult Blood Urine Nitrite Urine Bilirubin Urine Urobilinogen Ur Leukocyte Esterase Ur Microscopic Review Urine Culture Comments Urine HCG, Qual Salicylates < 1.5 Urine Opiates Screen Ur Buprenorphine Scrn Ur Oxycodone Screen Urine Methadone Screen Acetaminophen < 0.1 Ur Barbiturates Screen Ur Tricyclics Screen Ur Phencyclidine Scrn Ur Amphetamine Screen U Methamphetamines Scrn U Benzodiazepines Scrn Urine Cocaine Screen U Cannabinoids Screen Ur Drug Screen Comment Ethyl Alcohol < 10.0 10/15/23 10/15/23 03:42 03:42 WBC RBC Hgb Hct MCV MCH MCHC RDW Plt Count MPV Neut # (Auto) Lymph # (Auto) Morrison # (Auto) Eos # (Auto) Baso # (Auto) Absolute Nucleated RBC Nucleated RBC % VBG Total Hgb VBG Oxyhemoglobin VBG Carboxyhemoglobin VBG Methemoglobin Sodium Potassium Chloride Carbon Dioxide Anion Gap BUN Creatinine Estimated GFR (MDRD) Glucose Calcium Total Bilirubin AST ALT Alkaline Phosphatase Total Protein Albumin Globulin Albumin/Globulin Ratio Lipase TSH Urine Color YELLOW Urine Clarity CLEAR Urine pH 6.5 Ur Specific [place] 1.025 Urine Protein NEGATIVE Urine Glucose (UA) NEGATIVE Urine Ketones NEGATIVE Urine Occult Blood NEGATIVE Urine Nitrite NEGATIVE Urine Bilirubin NEGATIVE Urine Urobilinogen 0.2 (NORMAL) Ur Leukocyte Esterase NEGATIVE Ur Microscopic Review NOT INDICATED Urine Culture Comments NOT INDICATED Urine HCG, Qual NEGATIVE Salicylates Urine Opiates Screen NEGATIVE Ur Buprenorphine Scrn NEGATIVE Ur Oxycodone Screen NEGATIVE Urine Methadone Screen NEGATIVE Acetaminophen Ur Barbiturates Screen NEGATIVE Ur Tricyclics Screen NEGATIVE Ur Phencyclidine Scrn NEGATIVE Ur Amphetamine Screen POSITIVE H U Methamphetamines Scrn POSITIVE H U Benzodiazepines Scrn NEGATIVE Urine Cocaine Screen NEGATIVE U Cannabinoids Screen POSITIVE H Ur Drug Screen Comment CUTOFF CONC BELOW: Ethyl Alcohol PD Medical Decision Making - ED course Complexity details: reviewed results, re-evaluated patient, considered differential, d/w patient ED course: Patient presents after attempting suicide by carbon oxide poisoning. Unremarkable blood tests including carboxyhemoglobin level (result of 3.9 is within normal range for a smoker; patient does smoke cigarettes, although even if she did not, 3.9 carboxyhemoglobin would still be an insignificant result). She is given 1 mg p.o. lorazepam for anxiety. I explained to her that I would be getting a telepsychiatric consult due to the seriousness of her suicide attempt and patient is agreeable to this evaluation. Telepsychiatric consult is pending at the end of my shift and thus care of patient is turned over to oncoming ED physician (Dr. Ramos). Departure - Departure Disposition: 01 Home, Self Care Clinical Impression: Stimulant use disorder, Depression Condition: Stable Instructions: ED Depression Comments: Follow-up with [facility] at [phone] to schedule psychiatric care and counseling. We have also given you a longer list of outpatient resources that you could also refer to for help with depression and substance use. Return to the emergency department with any worsening symptoms such as feeling like you want to hurt yourself, worsening depression or any concerns. Help is available Speak with someone today 537 Suicide and Crisis Lifeline Hours: Available 24 hours. Forms: PCP List Discharge Date/Time: 10/15/23 10:43
[2023-10-15 02:10] LABS: BASOPHILS % (AUTO) 0.4 %; EOSINOPHILS # (AUTO) 0.1 10^3/uL (0.0-0.7); EOSINOPHILS % (AUTO) 1.1 %; HCT - HEMATOCRIT 42.4 % (37.0-47.0); HGB - HEMOGLOBIN 13.7 g/dL (12.0-16.0); LYMPHOCYTES # (AUTO) 2.9 10^3/uL (1.5-3.5); LYMPHOCYTES % (AUTO) 29.7 %; MEAN CORPUSCULAR HEMOGLOBIN 32.1 pg (27.0-31.0); MEAN CORPUSCULAR HGB CONC 32.3 g/dL (32.0-36.0); MEAN CORPUSCULAR VOLUME 99.3 fL (81.0-99.0); MEAN PLATELET VOLUME 8.6 fL (7.9-10.8); MONOCYTES # (AUTO) 0.8 10^3/uL (0.0-1.0); NEUTROPHILS # (AUTO) 5.8 10^3/uL (1.5-6.6); NEUTROPHILS % (AUTO) 60.6 %; PLT - PLATELET COUNT 342 10^3/uL (130-450); RED BLOOD COUNT 4.27 10^6/uL (4.20-5.40); RED CELL DISTRIBUTION WIDTH 12.3 % (12.0-15.0); WHITE BLOOD COUNT 9.6 x10^3/uL (4.8-10.8)
[2023-10-15] MEDS: LORazepam 0.5 MG TABLET PO STA (02:24)
[2023-10-15 02:29] LABS: ALBUMIN 4.4 g/dL (3.2-5.5); ALBUMIN/GLOBULIN RATIO 1.8 (1.0-2.2); ALKALINE PHOSPHATASE 73 IU/L (42-121); ALT ALANINE AMINOTRANSFERASE 16 IU/L (10-60); AST ASPARTATE AMINOTRANSFERASE 14 IU/L (10-42); BILIRUBIN,TOTAL 0.3 mg/dL (0.2-1.0); BUN - BLOOD UREA NITROGEN 23 mg/dL (6-20); CALCIUM 9.4 mg/dL (8.5-10.3); CARBON DIOXIDE - CO2 27 mmol/L (21-32); CHLORIDE 105 mmol/L (101-111); CREATININE 0.7 mg/dL (0.6-1.3); ETOH - ETHANOL < 10.0 mg/dL; GFR - MDRD 96 (>89); GLUCOSE 108 mg/dL (74-104); LIPASE 37 U/L (11-82); POTASSIUM 4.4 mmol/L (3.5-4.5); SODIUM 137 mmol/L (135-145); TOTAL PROTEIN 6.9 g/dL (6.4-8.9)
[2023-10-15 02:34] LABS: CARBOXYHEMOGLOBIN VENOUS 3.9 % (0-1.5); METHEMOGLOBIN VENOUS 0.4 % (0-1.5)
[2023-10-15 02:35] LABS: HEMOGLOBIN TOTAL, VENOUS WB 14.8 g/dL (12.0-18.0)
[2023-10-15 02:35] LABS: SALICYLATE < 1.5 mg/dL
[2023-10-15 02:36] LABS: ACETAMINOPHEN < 0.1 ug/mL
[2023-10-15 02:41] LABS: THYROID STIMULATING HORMONE 1.38 uIU/mL (0.34-5.60)
[2023-10-15 03:46] LABS: BILIRUBIN,URINE NEGATIVE (NEGATIVE); GLUCOSE, URINE (UA) NEGATIVE (NEGATIVE); KETONES,URINE (UA) NEGATIVE (NEGATIVE); LEUKOCYTE ESTERASE, URINE NEGATIVE (NEGATIVE); NITRITE,URINE NEGATIVE (NEGATIVE); OCCULT BLOOD,URINE NEGATIVE (NEGATIVE); PH,URINE 6.5 PH (5.0-7.5); PROTEIN,URINE NEGATIVE (NEGATIVE); UROBILINOGEN,URINE 0.2 (NORMAL) E.U./dL (NORMAL)
[2023-10-15 03:58] LABS: CLARITY,URINE CLEAR (CLEAR)
[2023-10-15 03:59] LABS: AMPHETAMINE SCREEN,URINE POSITIVE (NEGATIVE); BARBITURATE SCREEN,UR NEGATIVE (NEGATIVE); BENZODIAZEPINES SCREEN, URINE NEGATIVE (NEGATIVE); BUPRENORPHINE SCREEN, URINE NEGATIVE (NEGATIVE); COCAINE SCREEN URINE NEGATIVE (NEGATIVE); METHADONE SCREEN, URINE NEGATIVE (NEGATIVE); METHAMPHETAMINES SCREEN, URINE POSITIVE (NEGATIVE); OPIATE SCREEN, URINE NEGATIVE (NEGATIVE); OXYCODONE SCREEN, URINE NEGATIVE (NEGATIVE); THC CANNABINOID SCREEN, URINE POSITIVE (NEGATIVE); TRICYCLIC ANTIDEPRESSANT,URINE NEGATIVE (NEGATIVE)
[2023-10-15 04:00] LABS: HCG UR QUAL NEGATIVE
--- NOTE | 2023-10-15 10:35 | ED Physician Documentation ---
ED Addendum - Addendum Addendum: Patient has been seen by telepsychiatry. They are not yet comfortable with releasing patient given her suicide attempt and would recommend that we reach out to [facility] to see if patient meets criteria for involuntary detainment. I did review these recommendations with the patient and she has remained calm and cooperative and understands plan for another evaluation. 10/15/23 10:32 Per [facility] Idania pt does not meet criteria for detainment. Patient will plan to stay with her friend who is at the bedside. She was given resources for outpatient mental health treatment as well as substance abuse resources. She was also given the emergency crisis line of [phone]. She understands concerning symptoms to return for. Departure - Departure Disposition: Home, Self Care Clinical Impression: Stimulant use disorder, Depression Condition: Stable Instructions: ED Depression Comments: Follow-up with [facility] at [phone] to schedule psychiatric care and counseling. We have also given you a longer list of outpatient resources that you could also refer to for help with depression and substance use. Return to the emergency department with any worsening symptoms such as feeling like you want to hurt yourself, worsening depression or any concerns. Help is available Speak with someone today [id number] [facility] Lifeline Hours: Available 24 hours. Forms: PCP List Discharge Date/Time: 10/15/23 10:43
[2023-10-15 10:46] VITALS: BP 151/86; O2SAT 99
== END 2023-10-15 10:43 | disposition home or self-care (01) ==
LOC: ED 01:12
DX: F32.A Depression, unspecified (principal); R45.851 Suicidal ideations; F15.90 Other stimulant use, unspecified, uncomplicated; E03.9 Hypothyroidism, unspecified; F17.200 Nicotine dependence, unspecified, uncomplicated
CPT/HCPCS: 36415; 80053; 80143; 80179; 80306; 81003; 81025; 82077; 82375; 83690; 84443; 85025; 90834; 99283; A9270; Q3014; 81001; 87086